=== PATIENT | female | born 2000 | race Caucasian/White ===

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

== ENCOUNTER 2022-10-23 17:41 | Emergency (ER) | payer MEDICAID ==
[~2022-10-23] VITALS: Ht 162.6 cm; Wt 49.8 kg
[2022-10-23 17:51] VITALS: BP 127/64
[2022-10-23 18:25] LABS: HEMATOCRIT. 37.8 % (36.0-48.0); HEMOGLOBIN. 12.4 g/dL (12.0-16.0); MEAN CORPUSCULAR VOLUME 88.4 fL (81.0-99.0); MEAN PLATELET VOLUME 9.4 fl (7.4-10.4); PLATELET 167 x1000/uL (130-400); RED BLOOD CELL COUNT 4.28 mill/uL (4.2-5.4); RED CELL DISTRIBUTION WIDTH 14.2 % (11.6-14.6)
[2022-10-23 18:34] LABS: CHLORIDE 107 mEq/L (98-107)
[2022-10-23 19:07] LABS: PLATELET ESTIMATE NORMAL
== END 2022-10-24 12:30 | disposition left against medical advice (07) ==
LOC: ER 17:41
DX: R07.81 Pleurodynia (principal); Z53.21 Procedure and treatment not carried out due to patient leaving prior to being seen by health care provider
CPT/HCPCS: 36415; 80053; 85025; 99281